=== PATIENT | female | born 1990 ===

== ENCOUNTER 2020-09-18 21:15 | Outpatient (REF) | payer SELFPAY ==
[2020-09-22 10:10] LABS: COVID-19 RT-PCR Result NEGATIVE (Negative)
== END 2020-09-18 21:35 ==
LOC: NCHCN 21:15
PROVIDERS: PCP Family Medicine; Visit Provider Nurse Practitioner Family
DX: Z11.59 Encounter for screening for other viral diseases (principal)
CPT/HCPCS: U0003